=== PATIENT | male | born 1965 | race Two or more races ===

== ENCOUNTER 2024-09-03 09:52 | Outpatient (AMB) | payer BC, SELFPAY ==
--- NOTE | 2024-09-03 09:54 | A.OFFVIS_ITS ---
Vital Signs 09/03/24 09:56 Height 6 ft 1 in Weight 248 lb BMI 32.7 Intake Visit Reasons: Bilateral knee pains Intake Note: Mahamed is a 58 year old male who presents with complaints of progressively worsening bilateral knee pains, left greater than right. The patient describes his pains as sharp in nature. His pains have gotten worse over the last few months. He has been wearing bilateral knee sleeves which gave him mild relief. He has taken Aleve which gives him mild relief. He denies any recent traumatic event. He has not had a cortisone injection given into either of his knees. He thinks that he may have had a cortisone injection given into his toe for treatment of gout approximately 20 years ago. Allergies No Known Allergies Allergy (Verified 09/03/24 09:56) Medication List - Last Reconciled 09/03/24 by Angel Keating MD amitriptyline 75 mg PO BEDTIME indomethacin 50 mg PO TID PRN semaglutide (weight loss) (Wegovy) mg subcut [facility] Medical History (Updated 09/03/24 @ 10:59 by Angel Keating MD) Gout Social History (Updated 09/03/24 @ 09:57 by HANH Baca) Alcohol intake: former Patient Tobacco Use Status: Never used Tobacco Current occupational status: employed Current occupation: [employer] [place] [employer] Physical Exam Vital Signs: BMI result Body Mass Index 32.7 Const Other: Well-nourished well-developed very friendly male awake alert and oriented x3 in no acute distress Extrem Other: Bilateral knee examination shows minimal effusions, mild crepitus with range of motion, pain with range motion, no instability Office Procedures AMB Joint Injection/Aspiration Joint Injection/Aspiration Primary Site: left knee Prep: site was prepped using aseptic technique Injected: 40 mg of, DepoMedrol and 1% plain lidocaine Procedure: The patient tolerated the procedure well Coding 89292 - Large joint Procedure code (CPT) selection complete Results Reviewed Results Reviewed: X-ray report from [facility] of his bilateral knee shows mild patellofemoral degenerative changes, no acute bony abnormalities Assessment & Plan Assessment & Plan (1) Left knee pain: Code(s): M25.562 - Pain in left knee Category: Medical Plan Mr. Vizcaino presents with bilateral knee pains due to early degenerative joint disease and possible meniscus tearing. The risks and benefits of a left knee cortisone injection were discussed at length with the patient. The patient wished to proceed. He tolerated the injection well. He will continue wearing his bilateral knee sleeves. I will see him back once he returns from his vacati on in [place] and [place]. He will contact me prior to that time should any questions or concerns arise. Thank you very much for asking me to see this very friendly gentleman. I spent 22 minutes in reviewing the patient's records and imaging studies, seeing the patient and documenting in the medical record. Orders: Orders AMB Joint Injection/Aspiration Today M25.562 - Pain in left knee Coding Level of Care Code New Pt Level 3 (66520) Complex EM visit Add On G2211 Diagnoses Left knee pain M25.562 CPT Codes Coding - 71631 Large joint: 76228 - Large joint ([id number])
[2024-09-03 09:56] VITALS: BMI 32.7
== END 2024-09-03 10:25 | disposition home or self-care (01) ==
PROVIDERS: PCP Internal Medicine; Visit Provider Orthopaedic Surgery
DX: M25.562 Pain in left knee (principal)
CPT/HCPCS: 20610; 99203

== ENCOUNTER → 2024-09-03 09:52 | Outpatient (BNVA) | payer BC, SELFPAY | PROVIDERS: PCP Internal Medicine; Visit Provider Orthopaedic Surgery | DX: M25.562 Pain in left knee (principal); M25.561 Pain in right knee | CPT/HCPCS: 20610; J1010; J2003 ==

== ENCOUNTER 2024-10-07 13:02 | Outpatient (AMB) | payer BC, SELFPAY ==
--- OUTSIDE RECORDS SUMMARY | 2024-10-07 13:04 | XMS_ITS ---
Author Name [facility] Organization Unknown History of Medication Use Medication Directions Dispensed Refills Start Date End Date Stat indomethacin (INDOCIN) 50 MG capsule 02/17/2023 active indomethacin (INDOCIN) 50 MG capsule 02/17/2023 active amitriptyline (ELAVIL) 75 MG tablet 02/17/2023 active predniSONE (DELTASONE) 20 MG tablet Take 2 tablets (40 mg total) by mouth daily. 02/17/2023 active Problems Problem Status Onset Date Problem Type Date of Resoluti on Source Acute gout involving toe of right foot, unspecified cause [facility]
--- OUTSIDE RECORDS SUMMARY | 2024-10-07 13:04 | XMS_ITS | Continuity of Care Document ---
Author Organization [facility] [address] [place] [address] Phone [phone] Care Team Providers Care Drug Safety Specialist Name Role Phone Jackson Ferguson M.D. Care Team Information Receive r [phone] Social History Type Date Description Comments Sex Unknown Procedures Date Code Description Status 05/08/2022 NSHOWOFF No Show Office Visit Complet ed Medical Devices Description No Information Available Encounters Description No Information Available Assessments Description No Information Available Plan of Treatment No Information Available Functional Status Description No Information Available Mental Status Description No Information Available Referrals Description No Information Available
[2024-10-07 13:06] VITALS: BMI 32.7
--- NOTE | 2024-10-07 13:06 | A.OFFVIS_ITS ---
Vital Signs 10/07/24 13:06 Height 6 ft 1 in Weight 248 lb BMI 32.7 Intake Visit Reasons: right knee pain Intake Note: Mahamed is a 59 year old male who presents with complaints of progressively worsening right knee pain. The patient did have a cortisone injection given into his left knee at his last visit. He states they got fairly good relief from that injection. He describes his right knee pain as sharp in nature. He has tried Tylenol and anti-inflammatory medicines which gave him mild relief. He wishes to hold off on surgery if at all possible. Allergies No Known Allergies Allergy (Verified 10/07/24 13:06) Medication List - Last Reconciled 10/07/24 by Angel Keating MD amitriptyline 75 mg PO BEDTIME indomethacin 50 mg PO TID PRN semaglutide (weight loss) (Wegovy) mg subcut [facility] Medical History (Updated 10/07/24 @ 13:39 by Angel Keating MD) Gout Social History (Updated 09/03/24 @ 09:57 by HANH Baca) Alcohol intake: former Patient Tobacco Use Status: Never used Tobacco Current occupational status: employed Current occupation: [employer] Physical Exam Vital Signs: BMI result Body Mass Index 32.7 Const Other: Well-nourished well-developed very friendly male awake alert and oriented x3 in no acute distress Extrem Other: Bilateral lower extremity examination shows good capillary refill, no skin lesions noted, normal sensation light touch right knee examination shows minimal effusion, palpable crepitus with range of motion, pain with range of motion, no instability Office Procedures AMB Joint Injection/Aspiration Joint Injection/Aspiration Primary Site: right knee Prep: site was prepped using aseptic technique Injected: 40 mg of, DepoMedrol and 1% plain lidocaine Procedure: The patient tolerated the procedure well Coding 63017 - Large joint Procedure code (CPT) selection complete Assessment & Plan Assessment & Plan (1) Arthritis of right knee: Code(s): M17.11 - Unilateral primary osteoarthritis, right knee Category: Medical Plan Mr. Vizcaino Presents with right knee pain due to degenerative joint disease. The risks and benefits of a right knee cortisone injection were discussed at length with the patient. The patient wished to proceed. He tolerated the injection well. He will continue with his home exercise program. Will contact me prior to his follow-up appointment in 3 months should any questions or concerns arise. Feel free to call me at any time should questions regarding his orthopedic management arise. I spent 22 minutes in reviewing the patient's records and imaging studies, seeing the patient and documenting in the medical record. Orders: Orders AMB Joint Injection/Aspiration Today M17.11 - Unilateral primary osteoarthritis, right knee Coding Level of Care Code Est Pt Level 3 (01060) Complex EM visit Add On G2211 Diagnoses Arthritis of right knee M17.11 CPT Codes Coding - 22313 Large joint: 66318 - Large joint ([id number])
== END 2024-10-07 13:37 | disposition home or self-care (01) ==
PROVIDERS: PCP Internal Medicine; Visit Provider Orthopaedic Surgery
DX: M17.11 Unilateral primary osteoarthritis, right knee (principal)
CPT/HCPCS: 20610; 99213

== ENCOUNTER → 2024-10-07 13:02 | Outpatient (BNVA) | payer BC, SELFPAY | PROVIDERS: PCP Internal Medicine; Visit Provider Orthopaedic Surgery | DX: M17.11 Unilateral primary osteoarthritis, right knee (principal) | CPT/HCPCS: 20610; J1010; J2003 ==

== ENCOUNTER 2025-01-12 13:12 | Outpatient (AMB) | payer BC, SELFPAY ==
--- NOTE | 2025-01-12 13:16 | A.OFFVIS_ITS ---
Vital Signs 01/12/25 13:22 Height 6 ft 1 in Weight 248 lb BMI 32.7 Intake Visit Reasons: Bilateral knee pains Intake Note: Mahamed is a 59 year old male who presents with complaints of bilateral knee pains. He describes his pains as achy in nature. He has had cortisone injections which gave him fairly good relief. He has tried Tylenol and indomethacin which gave him mild relief. He wishes to hold off on surgery if at all possible. Allergies No Known Allergies Allergy (Verified 01/12/25 13:22) Medication List - Last Reconciled 01/12/25 by Angel Keating MD amitriptyline 75 mg PO BEDTIME indomethacin 50 mg PO TID PRN semaglutide (weight loss) (Wegovy) mg subcut [facility] Medical History (Updated 01/12/25 @ 13:50 by Angel Keating MD) Gout Social History (Updated 09/03/24 @ 09:57 by HANH Baca) Alcohol intake: former Patient Tobacco Use Status: Never used Tobacco Current occupational status: employed Current occupation: [employer] Physical Exam Vital Signs: BMI result Body Mass Index 32.7 Const Other: Well-nourished well-developed very friendly male awake alert and oriented x3 in no acute distress Extrem Other: Bilateral lower extremity examination shows good capillary refill, no skin lesions noted, normal sensation light touch Bilateral knee examination shows minimal effusions, palpable crepitus with range of motion, pain with range of motion, no instability Office Procedures AMB Joint Injection/Aspiration Joint Injection/Aspiration Primary Site: right knee Prep: site was prepped using aseptic technique Injected: 40 mg of, DepoMedrol and 1% plain lidocaine Procedure: The patient tolerated the procedure well Coding 59121 - Large joint Procedure code (CPT) selection complete AMB Joint Injection/Aspiration Joint Injection/Aspiration Primary Site: left knee Prep: site was prepped using aseptic technique Injected: 40 mg of, DepoMedrol and 1% plain lidocaine Procedure: The patient tolerated the procedure well Coding 65574 - Large joint Procedure code (CPT) selection complete Assessment & Plan Assessment & Plan (1) Arthritis of left knee: Code(s): M17.12 - Unilateral primary osteoarthritis, left knee Category: Medical (2) Arthritis of right knee: Code(s): M17.11 - Unilateral primary osteoarthritis, right knee Category: Medical Plan Mr. Vizcaino presents with bilateral knee pains due to degenerative joint disease. The risks and benefits of bilateral knee cortisone injections were discussed at length with the patient. The patient wished to proceed. He tolerated the injections well. He will continue with his home exercise program. He will contact me prior to his follow-up appointment in 3 months should any questions or concerns arise. Feel free to call me at any time should questions regarding his orthopedic management arise. Well-nourished well-developed very friendly male awake alert and oriented x3 in no acute distress Orders: Orders AMB Joint Injection/Aspiration Today M17.12 - Unilateral primary osteoarthritis, left knee AMB Joint Injection/Aspiration Today M17.11 - Unilateral primary osteoarthritis, right knee Coding Level of Care Code Est Pt Level 3 (75455) Complex EM visit Add On G2211 Diagnoses Arthritis of left knee M17.12 Arthritis of right knee M17.11 CPT Codes Coding - 02227 Large joint: 79577 - Large joint ([id number]) Coding - 60815 Large joint: 87150 - Large joint ([id number])
[2025-01-12 13:22] VITALS: BMI 32.7
--- OUTSIDE RECORDS SUMMARY | 2025-01-12 16:05 | XMS_ITS | Clinical Summary ---
Author Organization [facility] [place] [address] Phone Care Team Providers Care Superintendent Distribution Name Role Phone Dana Mg Primary Care Provider [phone] Encounters Date Type Department Care Team Description 10/27/2024 Lab Requisition [facility] - Main Lab [address] [facility] [place] [address] Benjamin Hoyt PA Frequency of micturition; Other fatigue; Benign prostatic hyperplasia without lower urinary tract symptoms; Essential (primary) hypertension; Major depressive disorder, single episode, unspecified from Last 3 Months Surgical History Surgery Date Site/Laterality Comments CHOLECYSTECTOMY N/A PROCEDURE: HISTORICAL CHOLECYSTECTOMY; COMMENT: 2019 Medical History Medical History Date Comments Snoring 08/07/2019 DX:Snoring CONCEPCIÓN (obstructive sleep apnea) DX :CONCEPCIÓN (obstructive sleep apnea) RLS (restless legs syndrome) DX: RLS (restless legs syndrome) HTN (hypertension) DX:HTN (hyper tension) Gout DX:Gout Family History Medical History Relation Name Comments Alcohol abuse Father Other: accident Mother Schizophrenia Sister Relation Name Status Comments Father Mother Sister Social History Tobacco Use Types Packs/Day Years Used Date Smoking Tobacco: Former Smokeless Tobacco: Never Alcohol Use Standard Drinks/Week Comments Yes 0 (1 standard drink = 0.6 oz pur e alcohol) Sex and Gender Information Value Date Recorded Sex Assigned at Not on file Legal Sex Male 3:19 AM EST Gender Identity Not on file Sexual Orientation Not on file Obstetrics History Last Filed Vital Signs Vital Sign Reading Time Taken Comments Blood Pressure 150/70 03/13/2023 2:35 PM EDT Pulse 78 03/13/2023 1:55 PM EDT Temperature - - Respiratory Rate - - Oxygen Saturation - - Inhaled Oxygen Concentration - - Weight 110 kg (243 lb) 03/13/2023 1:55 PM EDT Height 185.4 cm (6' 1 ) 03/13/2023 1:55 PM EDT Body Mass Index 32.06 03/13/2023 1:55 PM EDT Plan of Treatment Health Maintenance Due Date Last Done Comments DTaP,Tdap,and Td Vaccines (1 - Tdap) 1984 Hepatitis B Vaccines (1 of 3 - 19+ 3-dose series) 1984 Pneumococcal Vaccine: 50+ Years (1 of 1 - PCV) 2015 Cholesterol Screening (Lipid Panel) 09/02/2022 Colorectal Cancer Screening: Colonoscopy 09/02/2022 Depression Screening 09/02/2022 HIV Screening 09/02/2022 Hepatitis C Screening 09/02/2022 Social Influencers of Health Screening 09/02/2022 COVID-19 Vaccine ( season) 2024 02/07/2022, 08/11/2021, 01/24/2021, Additional history exists Influenza Vaccine (Season Ended) 2025 08/11/2021, 06/16/2020 Hypertension/CHF/CAD Annual BMP Blood Test 10/27/2025 10/27/2024 RSV Immunization Adult Patients (1 - 1-dose 75+ series) 2040 Zoster Vaccines Completed 03/28/2022, 10/28/2021 HIB Vaccines Aged Out No longer eligi ble based on patient's age to complete this topic HPV Vaccines Aged Out No longer eligi ble based on patient's age to complete this topic Hepatitis A Vaccines Aged Out No long er eligible based on patient's age to complete this topic IPV Vaccines Aged Out No longer eligi ble based on patient's age to complete this topic MMR Vaccines Aged Out No longer eligi ble based on patient's age to complete this topic Meningococcal ACWY Vaccine Aged Out N o longer eligible based on patient's age to complete this topic Meningococcal B Vaccine Aged Out No l onger eligible based on patient's age to complete this topic Pneumococcal Vaccine: Pediatrics (0 to 5 Years) and At-Risk Patients (6 to 64 Years) Aged Out No longer eligible based on patient's age to complete this topic RSV Immunization Patients Under 20 months Aged Out No longer eligible based on patient's age to complete this topic Varicella Vaccines Aged Out No longer eligible based on patient's age to complete this topic Procedures Procedure Name Priority Date/Time Associated Diagnosis Comments LAVENDER - EDTA Routine 10/27/2024 12:00 AM EST Frequency of micturition Other fatigue Benign prostatic hyperplasia without lower urinary tract symptoms Essential (primary) hypertension Major depressive disorder, single episode, unspecified SST - GOLD Routine 10/27/2024 12:00 AM EST Frequency of micturition Other fatigue Benign prostatic hyperplasia without lower urinary tract symptoms Essential (primary) hypertension Major depressive disorder, single episode, unspecified CBC WITH AUTO DIFFERENTIAL Routine 10/27/2024 12:00 AM EST Frequency of micturition Other fatigue Benign prostatic hyperplasia without lower urinary tract symptoms Essential (primary) hypertension Major depressive disorder, single episode, unspecified PROSTATE SPECIFIC ANTIGEN SCREEN Routine 10/27/2024 12:00 AM EST Frequency of micturition Other fatigue Benign prostatic hyperplasia without lower urinary tract symptoms Essential (primary) hypertension Major depressive disorder, single episode, unspecified C-REACTIVE PROTEIN Routine 10/27/2024 12 :00 AM EST Frequency of micturition Other fatigue Benign prostatic hyperplasia without lower urinary tract symptoms Essential (primary) hypertension Major depressive disorder, single episode, unspecified CBC AND DIFFERENTIAL Routine 10/27/2024 12:00 AM EST Frequency of micturition Other fatigue Benign prostatic hyperplasia without lower urinary tract symptoms Essential (primary) hypertension Major depressive disorder, single episode, unspecified COMPREHENSIVE METABOLIC PANEL Routine 10/27/2024 12:00 AM EST Frequency of micturition Other fatigue Benign prostatic hyperplasia without lower urinary tract symptoms Essential (primary) hypertension Major depressive disorder, single episode, unspecified CULTURE URINE Routine 10/27/2024 12:00 AM EST Frequency of micturition Other fatigue Benign prostatic hyperplasia without lower urinary tract symptoms Essential (primary) hypertension Major depressive disorder, single episode, unspecified from Last 3 Months Results * Prostate specific antigen screen (10/27/2024 12:00 AM EST) PSA 0.77 0.00 - 4.00 ng/mL LAB CHEMISTRY METHOD 10/27/2024 7:51 PM EST [facility] Blood Venous blood specimen / Unknown 10/27/2024 10/27/2024 6:50 PM EST Narrative [facility] - 10/27/2024 7:51 PM EST The Siemens Advia PerBlueaur Chemiluminescent Immunoassay is used. Results obtained with different assay methods or kits cannot be used interchangeably. Results cannot be interpreted as absolute evidence of the presence or absence of malignant disease. Benjamin Hoyt [place] LAB BLOOD ORDERABLES Final Res ult Performing Organization Address City/[facility]/ZIP Co de Phone Number [facility] [address] [place] [address], [place] [phone] * SST tube (10/27/2024 12:00 AM EST) Pathologist [facility] Extra Tube Hold for add-ons. 10/27/2024 8:02 PM EST [facility] Comment:Auto resulted. Blood Venous blood specimen / Unknown 10/27/2024 10/27/2024 6:50 PM EST Benjamin Hoyt [place] LAB BLOOD ORDERABLES Final Res ult [facility] [address] [place] [address], [place] [phone] * (ABNORMAL) CBC auto differential (10/27/2024 12:00 AM EST) Pathologist [facility] WBC 4.0(L) 4.8 - 10.8 K/mcL LAB HEMETOLOGY METHOD 10/27/2024 7:42 PM EST [facility] RBC 4.30(L) 4.50 - 5.50 M/mcL LAB HEMETOLOGY METHOD 10/27/2024 7:42 PM [facility] Hemoglobin 12.6(L) 13.5 - 17.5 g/dL LAB HEMETOLOGY METHOD 10/27/2024 7:42 PM [facility] Hematocrit 38.5(L) 42.0 - 54.0 % LAB HEMETOLOGY METHOD 10/27/2024 7:42 PM [facility] MCV 90.4 79.0 - 98.0 FL LAB HEMETOLOGY METHOD 10/27/2024 7:42 PM [facility] MCH 29.6 27.0 - 32.0 pcg LAB HEMETOLOGY METHOD 10/27/2024 7:42 PM [facility] MCHC 32.7 32.0 - 37.0 g/dL LAB HEMETOLOGY METHOD 10/27/2024 7:42 PM [facility] RDW 13.8 11.0 - 15.0 % LAB HEMETOLOGY METHOD 10/27/2024 7:42 PM [facility] Platelets 134 130 - 400 K/mcL LAB HEMETOLOGY METHOD 10/27/2024 7:42 PM [facility] MPV 11.9(H) 7.0 - 11.0 FL LAB HEMETOLOGY METHOD 10/27/2024 7:42 PM [facility] NRBC 0.0 <1.0 % LAB HEMETOLOGY METHOD 10/27/2024 7:42 PM [facility] NRBC Absolute 0.00 <0.10 K/mcL LAB HEMETOLOGY METHOD 10/27/2024 7:42 PM [facility] Neutrophils Relative 58.7 % LAB HEMETOLOGY METHOD 10/27/2024 7:42 PM [facility] Lymphocytes Relative 29.1 % LAB HEMETOLOGY METHOD 10/27/2024 7:42 PM EST [facility] Monocytes Relative 7.3 % LAB HEMETOLOGY METHOD 10/27/2024 7:42 PM [facility] Eosinophils Relative 3.8 % LAB HEMETOLOGY METHOD 10/27/2024 7:42 PM [facility] Basophils Relative 0.8 % LAB HEMETOLOGY METHOD 10/27/2024 7:42 PM [facility] Immature Granulocytes Relative 0.3 % LAB HEMETOLOGY METHOD 10/27/2024 7:42 PM [facility] Neutrophils Absolute 2.34 1.50 - 7.00 K/mcL LAB HEMETOLOGY METHOD 10/27/2024 7:42 PM [facility] Lymphocytes Absolute 1.16 1.00 - 5.00 K/mcL LAB HEMETOLOGY METHOD 10/27/2024 7:42 PM [facility] Monocytes Absolute 0.29 0.20 - 1.00 K/mcL LAB HEMETOLOGY METHOD 10/27/2024 7:42 PM [facility] Eosinophils Absolute 0.15 0.00 - 0.50 K/mcL LAB HEMETOLOGY METHOD 10/27/2024 7:42 PM [facility] Basophils Absolute 0.03 0.00 - 0.20 K/mcL LAB HEMETOLOGY METHOD 10/27/2024 7:42 PM [facility] Immature Granulocytes Absolute 0.01 0.00 - 0.03 K/mcL LAB HEMETOLOGY METHOD 10/27/2024 7:42 PM [facility] Blood Venous blood specimen / Unknown 10/27/2024 10/27/2024 6:50 PM EST us Benjamin LEVINE LAB BLOOD ORDERABLES Final Res ult [facility] [address] [place] [address], [place] [phone] * Lavender tube (10/27/2024 12:00 AM EST) Pathologist [facility] Extra Tube Hold for add-ons. 10/27/2024 8:02 PM EST [facility] Comment:Auto resulted. Blood Venous blood specimen / Unknown 10/27/2024 10/27/2024 6:50 PM EST us Benjamin LEVINE LAB BLOOD ORDERABLES Final Res ult [facility] [address] [place] [address], [place] [phone] * Culture urine (10/27/2024 12:00 AM EST) Pathologist [facility] Culture, Urine No growth 10/28/2024 1:17 PM EST [facility] Urine Urine specimen obtained by clean catch procedure / Unknown 10/27/2024 10/27/2024 6:50 PM EST us Benjamin LEVINE LAB MICROBIOLOGY - GENERAL ORD ERABLES Final Result [facility] [address] [place] [address], [place] [phone] * C-reactive protein (10/27/2024 12:00 AM EST) Pathologist [facility] C-Reactive Protein <0.29 <=0.50 mg/dL LAB CHEMISTRY METHOD 10/27/2024 7:43 PM EST [facility] Blood Venous blood specimen / Unknown 10/27/2024 10/27/2024 6:50 PM EST us Benjamin LEVINE LAB BLOOD ORDERABLES Final Res ult [facility] [address] [place] [address], * (ABNORMAL) Comprehensive metabolic panel (10/27/2024 12:00 AM EST) Sodium 136 133 - 145 mmol/L LAB CHEMISTRY METHOD 10/27/2024 7:44 PM [facility] Potassium 4.1 3.5 - 5.5 mmol/L LAB CHEMISTRY METHOD 10/27/2024 7:44 PM [facility] Chloride 107 96 - 110 mmol/L LAB CHEMISTRY METHOD 10/27/2024 7:44 PM [facility] CO2 25 21 - 32 mmol/L LAB CHEMISTRY METHOD 10/27/2024 7:44 PM [facility] Anion Gap 4 3 - 11 LAB CHEMISTRY METHOD 10/27/2024 7:44 PM [facility] Glucose 246(H) 70 - 100 mg/dL LAB CHEMISTRY METHOD 10/27/2024 7:44 PM [facility] BUN 14 5 - 25 mg/dL LAB CHEMISTRY METHOD 10/27/2024 7:44 PM [facility] Creatinine 1.43(H) 0.70 - 1.30 mg/dL LAB CHEMISTRY METHOD 10/27/2024 7:44 PM [facility] eGFR 56(L) >=60 mL/min/1. 73m2 LAB CHEMISTRY METHOD 10/27/2024 7:44 PM [facility] Comment:Calculation based on the??Chronic Kidney Disease Epidemiology Collaboration (CKD-EPI) equation refit??without adjustment for race. BUN/Creatinine Ratio 9.8 LAB CHEMISTRY METHOD 10/27/2024 7:44 PM [facility] Calcium 8.8 8.5 - 10.5 mg/dL LAB CHEMISTRY METHOD 10/27/2024 7:44 PM [facility] AST (SGOT) 37 10 - 42 unit/L LAB CHEMISTRY METHOD 10/27/2024 7:44 PM [facility] ALT (SGPT) 83(H) 10 - 60 unit/L LAB CHEMISTRY METHOD 10/27/2024 7:44 PM [facility] Alkaline Phosphatase 71 42 - 121 unit/L LAB CHEMISTRY METHOD 10/27/2024 7:44 PM EST [facility] Total Protein 7.2 6.0 - 8.0 g/dL LAB CHEMISTRY METHOD 10/27/2024 7:44 PM [facility] Albumin 4.1 3.2 - 5.0 g/dL LAB CHEMISTRY METHOD 10/27/2024 7:44 PM [facility] Total Bilirubin 0.3 0.0 - 1.4 mg/dL LAB CHEMISTRY METHOD 10/27/2024 7:44 PM [facility] Blood Venous blood specimen / Unknown 10/27/2024 10/27/2024 6:50 PM EST us Benjamin LEVINE LAB BLOOD ORDERABLES Final Res ult [facility] [address] [place] [address], from Last 3 Months Insurance [facility] Care Teams Superintendent Distribution Relationship Specialty Start Date End Date Dana Mg DO [address] [place] [address] [facility] - General 08/22/22
--- OUTSIDE RECORDS SUMMARY | 2025-01-12 16:05 | XMS_ITS | Continuity of Care Document ---
Author Organization [facility] [address] [place] [address] Phone [phone] Care Team Providers Care Marine Farmer Name Role Phone Jackson Ferguson M.D. Care Team Information Receive r [phone] Social History Type Date Description Comments Sex [...]
--- OUTSIDE RECORDS SUMMARY | 2025-01-12 16:05 | XMS_ITS | Encounter Summary ---
Author Organization [facility] Address [address] [place] [address] Care Team Providers Care Wood Processing Worker Name Role Phone Saurav Genejess Primary Care Provider [phone] Encounter Details Date Type Department Care Team (Late st Contact Info) Description 10/27/2024 Lab Requisition [facility] - Main Lab [address] [facility] [place] [id number] Benjamin Hoyt PA [address] [facility] [address] [place] [address] Frequency of micturition; Other fatigue; Benign prostatic hyperplasia without lower urinary tract symptoms; Essential (primary) hypertension; Major depressive disorder, single episode, unspecified Social History Tobacco Use Types Packs/Day Years Used Date Smoking Tobacco: Former Smokeless Tobacco: Never Alcohol Use Standard Drinks/Week Comments Yes 0 (1 standard drink = 0.6 oz pur e alcohol) Sex and Gender Information Value Date Recorded Sex Assigned at Not on file Legal Sex Male 3:19 AM EST Gender Identity Not on file Sexual Orientation Not on file documented as of this encounter Plan of Treatment Not on file documented as of this encounter Procedures Procedure Name Priority Date/Time Associated Diagnosis Comments PROSTATE SPECIFIC ANTIGEN SCREEN Routine 10/27/2024 12:00 [...] hypertension Major depressive disorder, single episode, unspecified LAVENDER - EDTA Routine 10/27/2024 12:00 AM [...] hypertension Major depressive disorder, single episode, unspecified documented in this encounter Results * Lavender tube (10/27/2024 12:00 AM EST) Extra Tube Hold for add-ons. 10/27/2024 8:[address] [facility] Comment:Auto resulted. Blood Venous blood specimen / Unknown 10/27/2024 10/27/2024 6:50 PM EST us Benjamin LEVINE LAB BLOOD ORDERABLES Final Res ult [facility] [address] [place] [address], [place] [phone] * SST tube (10/27/2024 12:00 AM EST) [facility] Extra Tube Hold for add-ons. 10/27/2024 8:02 PM EST [facility] Comment:Auto resulted. Blood Venous blood specimen / Unknown 10/27/2024 10/27/2024 6:50 PM EST Benjamin LEVINE LAB BLOOD ORDERABLES Final Res ult [facility] [address] [place] [address], [place] [phone] * (ABNORMAL) CBC auto differential (10/27/2024 12:00 AM EST) [facility] WBC 4.0(L) 4.8 - 10.8 K/mcL LAB HEMETOLOGY METHOD 10/27/2024 7:42 PM [facility] RBC 4.30(L) 4.50 - 5.50 M/mcL LAB HEMETOLOGY METHOD 10/27/2024 7:42 PM [facility] Hemoglobin 12.6(L) 13.5 - 17.5 g/dL LAB HEMETOLOGY METHOD 10/27/2024 7:42 PM [facility] Hematocrit 38.5(L) 42.0 - 54.0 % LAB HEMETOLOGY METHOD 10/27/2024 7:42 PM [facility] MCV 90.4 79.0 - 98.0 FL LAB HEMETOLOGY METHOD 10/27/2024 7:42 PM [facility] MCH 29.6 27.0 - 32.0 pcg LAB HEMETOLOGY METHOD 10/27/2024 7:42 PM [facility] MCHC 32.7 32.0 - 37.0 g/dL LAB HEMETOLOGY METHOD 10/27/2024 7:42 PM [facility] RDW 13.8 11.0 - 15.0 % LAB HEMETOLOGY METHOD 10/27/2024 7:42 PM [facility] Platelets 134 130 - 400 K/mcL LAB HEMETOLOGY METHOD 10/27/2024 7:42 PM [facility] MPV 11.9(H) 7.0 - 11.0 FL LAB HEMETOLOGY METHOD 10/27/2024 7:42 PM [facility] NRBC 0.0 <1.0 % LAB HEMETOLOGY METHOD 10/27/2024 7:42 PM [facility] NRBC Absolute 0.00 <0.10 K/mcL LAB HEMETOLOGY METHOD 10/27/2024 7:42 PM [facility] Neutrophils Relative 58.7 % LAB HEMETOLOGY METHOD 10/27/2024 7:42 PM [facility] Lymphocytes Relative 29.1 % LAB HEMETOLOGY METHOD 10/27/2024 7:42 PM [facility] Monocytes Relative 7.3 % LAB HEMETOLOGY METHOD 10/27/2024 7:42 PM [facility] Eosinophils Relative 3.8 % LAB HEMETOLOGY METHOD 10/27/2024 7:42 PM [facility] Basophils Relative 0.8 % LAB HEMETOLOGY METHOD 10/27/2024 7:42 PM [facility] Immature Granulocytes Relative 0.3 % LAB HEMETOLOGY METHOD 10/27/2024 7:42 PM [facility] Neutrophils Absolute 2.34 1.50 - 7.00 K/mcL LAB HEMETOLOGY METHOD 10/27/2024 7:42 PM [facility] Lymphocytes Absolute 1.16 1.00 - 5.00 K/mcL LAB HEMETOLOGY METHOD 10/27/2024 7:42 PM EST [facility] Monocytes Absolute 0.29 0.20 - 1.00 K/[facility] LAB HEMETOLOGY METHOD 10/27/2024 7:42 PM EST [facility] Eosinophils Absolute 0.15 0.00 - 0.50 K/[facility] LAB HEMETOLOGY METHOD 10/27/2024 7:42 PM EST [facility] Basophils Absolute 0.03 0.00 - 0.20 K/[facility] LAB HEMETOLOGY METHOD 10/27/2024 7:42 PM EST [facility] Immature Granulocytes Absolute 0.01 0.00 - 0.03 K/[facility] LAB HEMETOLOGY METHOD 10/27/2024 7:42 PM [facility] Blood Venous blood specimen / Unknown 10/27/2024 10/27/2024 6:50 PM EST Benjamin LEVINE LAB BLOOD ORDERABLES Final Res ult [facility] [address] [place] [address], [place] [phone] * Culture urine (10/27/2024 12:00 AM EST) Culture, Urine No growth 10/28/2024 1:17 PM EST [facility] Urine Urine specimen obtained by clean catch procedure / Unknown 10/27/2024 10/27/2024 6:50 PM EST us Benjamin LEVINE LAB MICROBIOLOGY - GENERAL ORD ERABLES Final Result [facility] [address] [place] [address], [place] [phone] * Prostate specific antigen screen (10/27/2024 12:00 AM EST) PSA 0.77 0.00 - 4.00 ng/mL LAB CHEMISTRY METHOD 10/27/2024 7:51 PM EST [facility] Blood Venous blood specimen / Unknown 10/27/2024 10/27/2024 6:50 PM EST Narrative [facility] - 10/27/2024 7:51 PM EST The Siemens Advia Centaur Chemiluminescent Immunoassay is used. Results obtained with different assay methods or kits cannot be used interchangeably. Results cannot be interpreted as absolute evidence of the presence or absence of malignant disease. us Benjamin LEVINE LAB BLOOD ORDERABLES Final Res ult Performing Organization Address City/[facility]/ZIP Co de Phone Number [facility] [address] [place] [address], [place] [phone] * C-reactive protein (10/27/2024 12:00 AM EST) Pathologist [facility] C-Reactive Protein <0.29 <=0.50 mg/dL LAB CHEMISTRY METHOD 10/27/2024 7:43 PM EST [facility] Blood Venous blood specimen / Unknown 10/27/2024 10/27/2024 6:50 PM EST us Benjamin LEVINE LAB BLOOD ORDERABLES Final Res ult Performing Organization Address City/[facility]/ZIP Co de Phone Number [facility] [address] [place] [address], [place] [phone] * (ABNORMAL) Comprehensive metabolic panel (10/27/2024 12:00 AM EST) Pathologist [facility] Sodium 136 133 - 145 mmol/L LAB CHEMISTRY METHOD 10/27/2024 7:44 PM EST [facility] Potassium 4.1 3.5 - 5.5 mmol/L LAB CHEMISTRY METHOD 10/27/2024 7:44 PM EST [facility] Chloride 107 96 - 110 mmol/L LAB CHEMISTRY METHOD 10/27/2024 7:44 PM [facility] CO2 25 21 - 32 mmol/L LAB CHEMISTRY METHOD 10/27/2024 7:44 PM [facility] Anion Gap 4 3 - 11 LAB CHEMISTRY METHOD 10/27/2024 7:44 PM [facility] Glucose 246(H) 70 - 100 mg/dL LAB CHEMISTRY METHOD 10/27/2024 7:44 PM [facility] BUN 14 5 - 25 mg/dL LAB CHEMISTRY METHOD 10/27/2024 7:44 PM [facility] Creatinine 1.43(H) 0.70 - 1.30 mg/dL LAB CHEMISTRY METHOD 10/27/2024 7:44 PM [facility] eGFR 56(L) >=60 mL/min/1. 73m2 LAB CHEMISTRY METHOD 10/27/2024 7:44 PM [facility] Comment:Calculation based on the??Chronic Kidney Disease Epidemiology Collaboration (CKD-EPI) equation refit??without adjustment for race. BUN/Creatinine Ratio 9.8 LAB CHEMISTRY METHOD 10/27/2024 7:44 PM [facility] Calcium 8.8 8.5 - 10.5 mg/dL LAB CHEMISTRY METHOD 10/27/2024 7:44 PM [facility] AST (SGOT) 37 10 - 42 unit/L LAB CHEMISTRY METHOD 10/27/2024 7:44 PM [facility] ALT (SGPT) 83(H) 10 - 60 unit/L LAB CHEMISTRY METHOD 10/27/2024 7:44 PM [facility] Alkaline Phosphatase 71 42 - 121 unit/L LAB CHEMISTRY METHOD 10/27/2024 7:44 PM [facility] Total Protein 7.2 6.0 - 8.0 g/dL LAB CHEMISTRY METHOD 10/27/2024 7:44 PM [facility] Albumin 4.1 3.2 - 5.0 g/dL LAB CHEMISTRY METHOD 10/27/2024 7:44 PM EST [facility] Total Bilirubin 0.3 0.0 - 1.4 mg/dL LAB CHEMISTRY METHOD 10/27/2024 7:44 PM EST [facility] Blood Venous blood specimen / Unknown 10/27/2024 10/27/2024 6:50 PM EST us Benjamin LEVINE LAB BLOOD ORDERABLES Final Res ult [facility] [address] [place] [address], documented in this encounter Visit Diagnoses Diagnosis Frequency of micturition Urinary frequency Other fatigue Benign prostatic hyperplasia without lower urinary tract symptoms Essential (primary) hypertension Unspecified essential hypertension Major depressive disorder, single episode, unspecified documented in this encounter Care Teams Wood Processing Worker Relationship Specialty Start Date End Date Dana Mg DO [address] [place] [id number] PCP - General 08/22/22 documented as of this encounter
--- OUTSIDE RECORDS SUMMARY | 2025-01-12 16:05 | XMS_ITS | Encounter Summary ---
Author Organization [facility] Address [address] [place] [address] Care Team Providers Care Fence Installer Helper Name Role Phone Dana Mg DO Primary Care Provider [phone] Encounter Details Date Type Department Care Team (Late st Contact Info) Description 07/22/2024 1:01 PM EDT Hospital Encounter TH HISTORIC ENCOUNTERS EASTERN CONVERSION ONLY Kellee Ferguson MD [address] [facility] [address] [place] [address] Social History Tobacco Use Types Packs/Day Years [...] Procedure Name Priority Date/Time Associated Diagnosis Comments CR KNEE BILATERAL 4 OR MORE VW Routine 07/22/2024 1:32 PM EDT documented in this encounter Results * CR KNEE BILATERAL 4 OR MORE VW (07/22/2024 1:32 PM EDT) Anatomical Region Laterality Modality Radiographic Rachell ging 07/22/2024 1:07 PM EDT Narrative 07/22/2024 1:32 PM EDT [facility] Diagnostic Imaging Department [address], [place] [id number] Patient: ??MAHAMED VIZCAINO ?/Age/Sex: 1965 - 58 - M Unit#: ??[id number] ? Location/Status: ??SPDIGEN/REG CLI ? Mnemonic/Ordering Site: ??KNEEBI4/SPDI Ordering Physician: ??KELLEE FERGUSON MD CR Knee Bilateral 4 or More - 07/22/24 - 1327 Report Status:Signed Multiple views of both knees, 07/22/2024. HISTORY: PAIN, ARTHRITIS. COMPARISON: None. FINDINGS: Normal bony mineralization. ??No suspicious bony lesion. ??No fracture or malalignment. ??Mild degenerative irregularity of the patellofemoral compartment, left greater than right. ??Trace joint effusion on the left. ??Mild atherosclerotic calcification. IMPRESSION: Mild degenerative changes of the patellofemoral compartments. ??Trace left joint effusion. Dictating Physician: ??JIM BARRETO MD Electronically Signed by: ??JIM BARRETO MD Dic Date/Time: ??07/22/24 1331 Sign date/Time: ??07/22/24 1332 Procedure Note Jim Barreto MD - 07/28/2024 [facility] Diagnostic Imaging Department [address] [place] [address] Patient: MAHAMED VIZCAINO /Age/Sex: 1965 - 58 - M Unit#: [id number] Location/Status: SPDIGEN/REG CLI [facility] Ordering Physician: KELLEE FERGUSON MD CR Knee Bilateral 4 or More VW - 07/22/24 - 1327 Report Status:Signed Multiple views of both knees, 07/22/2024. HISTORY: PAIN, ARTHRITIS. COMPARISON: None. FINDINGS: Normal bony mineralization. No suspicious bony lesion. No fracture or malalignment. Mild degenerative irregularity of the patellofemoralcompartment, left greater than right. Trace joint effusion on the left. Mild atherosclerotic calcification. IMPRESSION: Mild degenerative changes of the patellofemoral compartments. Trace leftjoint effusion. Dictating Physician: JIM BARRETO MD Electronically Signed by: JIM BARRETO MD Dic Date/Time: 07/22/24 1331 Sign date/Time: 07/22/24 1332 Kellee Ferguson MD IMG XR PROCEDURES Final Result documented in this encounter Visit Diagnoses Not on filedocumented in this encounter Care Teams Fence Installer Helper Relationship Specialty Start Date End Date Dana Mg DO [address] [facility] [place] [address] PCP - General 08/22/22 documented as of this encounter
--- OUTSIDE RECORDS SUMMARY | 2025-01-12 16:05 | XMS_ITS | Clinical Summary ---
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 10 tablet 02/13/2023 Active Social History Tobacco Use Types Packs/Day Years Used Date Smoking Tobacco: Every Day Smokeless Tobacco: Never Tobacco Cessation:Ready to Q uit: Not Asked; Counseling Given: Not Answered Alcohol Use Standard Drinks/Week Comments Yes 0 (1 standard drink = 0.6 oz pur e alcohol) Sex and Gender Information Value Date Recorded Sex Assigned at Not on file Gender Identity Not on file Sexual Orientation Not on file Last Filed Vital Signs Vital Sign Reading Time Taken Comments Blood Pressure 136/82 02/13/2023 4:22 PM EDT Pulse 72 02/13/2023 4:22 PM EDT Temperature 36.7 ??C (98 ??F) 10/05/2021 1:25 PM EST Respiratory Rate 18 04/22/2021 5:05 PM EDT Oxygen Saturation 98% 02/13/2023 4:22 PM EDT Inhaled Oxygen Concentration - - Weight 111 kg (245 lb) 10/05/2021 1:25 PM EST Height - - Body Mass Index - - Plan of Treatment Health Maintenance Due Date Last Done Comments Hepatitis C Virus Screening 1965 Pneumococcal Vaccine: Pediat bobbi (0-5 Years) and At-Risk Patients (6 to 49 Years) (1 of 2 - PCV) 1971 HIV Screening 1978 DTaP/Tdap/Td Vaccines (1 - Tdap) 1984 Hepatitis B Vaccines (1 of 3 - 19+ 3-dose series) 08/31 Pneumococcal Vaccines 50+ (1 of 2 - PCV) 1984 Colonoscopy 2010 Zoster (Shingles) Vaccine (1 of 2) 2015 Influenza Vaccine 04/30/2024 COVID-19 Vaccine ( season) 2024 Care Teams Honey Producer Relationship Specialty Start Date End Date Pcp, No PCP - General General Medicine 09/30/20
== END 2025-01-12 13:49 | disposition home or self-care (01) ==
LOC: HO.HOS 13:12
PROVIDERS: PCP Internal Medicine; Visit Provider Orthopaedic Surgery
DX: M17.0 Bilateral primary osteoarthritis of knee (principal)
CPT/HCPCS: 20610; 99213

== ENCOUNTER → 2025-01-12 13:12 | Outpatient (BNVA) | payer BC, SELFPAY | PROVIDERS: PCP Internal Medicine; Visit Provider Orthopaedic Surgery | DX: M17.0 Bilateral primary osteoarthritis of knee (principal) | CPT/HCPCS: 20610; J1010; J2003 ==